=== PATIENT | male | born 1980 | race Caucasian/White ===

== ENCOUNTER → 2021-01-12 00:07 | Outpatient (CLI) | payer OTHER, SELFPAY ==
[2021-01-12 17:14] LABS: SARS-CoV-2 RNA PCR Negative
== END ==
PROVIDERS: Visit Provider Internal Medicine Critical Care Medicine
DX: Z01.812 Encounter for preprocedural laboratory examination (principal); Z20.822 Contact with and (suspected) exposure to COVID-19
CPT/HCPCS: C9803; U0003; U0005

== ENCOUNTER 2021-01-14 09:20 | Outpatient (CLI) | payer OTHER, SELFPAY ==
--- NOTE | 2021-01-31 13:44 | WPDSLEEPSTUD ---
Sleep Study Ordering Provider: Blanca Alfonso MD Interpreting Physician: Blanca Alfonso MD Sleep Study Type: Polysomnogram Height: 1.85 m Weight: 123.377 kg Body Mass Index: 35.9 Neck Circumference (inches): 17 Pindall: 14 Reason for Sleep Study Hypersomnolence Sleep History Bryon Allison is a 40 year old man with nasal allergies, congestion, snoring and witnessed apneas. over the years he has had progressive problems with his sleep and he feels tired in the day, no matter how much sleep he gets. He has had problems losing weight no matter what diet or exercise he uses. His tells him that he shakes at night in . He occasionally snores loudly enough that she complains about it. He occasionally awakens at night with heartburn, belching or coughing. He occasionally awakens from sleep feeling short of breath. He constantly has trouble sleeping with a cold. He occasionally wakes up gasping for breath at night and occasionally has breathing problems at night observed by his . He occasionally notices his heart pounding or beating irregularly at night. He constantly sweats excessively night. He frequently falls asleep during the day. He rarely falls asleep involuntarily. He never falls asleep while driving. He rarely falls asleep while exerting physical effort. He frequently has loss of muscle tone with strong emotion and frequently has daytime difficulties due to his excessive sleepiness. 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 he occasionally feels paralyzed on waking or falling asleep. He rarely has vivid dreamlike scenes upon awakening or falling asleep. He never feels afraid to go to sleep. He rarely has nightmares and rarely remembers his dreams. He rarely has racing thoughts. He rarely feels sad, depressed or anxious. He frequently has muscular tension. He frequently notices parts of his body jerking. He frequently kicks at night. He frequently has crawling and aching feelings in his legs. He occasionally has leg pain at night. He rarely has morning jaw pain and rarely grinds his teeth during sleep. He frequently is bothered by pain during the day. He occasionally is awakened by pain at night. He frequently wakes up feeling stiff in the morning with sore achy muscles and pain in the neck and spine. He has fatigue, palpitations, memory problems and concentration difficulties. He takes antacids regularly. He sleeps on his sides at home, not his back. Normal bedtime is 10-11 pm, taking 15-45 minutes to fall asleep, waking 5-6 times at night. When he wakes at night, he tries to reposition and return to sleep. Sometimes this takes a few minutes, sometimes longer. He wakes the morning at 6:45 a.m.. On weekends, he still goes to bed between 10-11 p.m. but wakes at 8:00 a.m.. He estimates getting 6-8 hours of sleep at night. He takes naps in the afternoon or evening. A short nap is not refreshing. He is usually drowsy in the morning for 3 hours or longer. Habits: Quit tobacco 15 years ago. Caffeine 2-3 per day. No alcohol or recreational drugs. [facility] Past Medical History Medical History Adjustment disorder with depressed mood Astigmatism Backache Cervicalgia Difficulty breathing Elevated blood-pressure reading, without diagnosis of hypertension Encounter for other administrative examinations Error, refractive, myopia Essential (primary) hypertension Facet syndrome, lumbar Hyperlipidemia Lesion of ulnar nerve, left upper limb Lipomatosis Low back pain Myopia, bilateral Nonallopathic lesion of lumbar region Obesity Other intervertebral disc degeneration, lumbosacral region Other muscle spasm Other spondylosis, cervical region Pain in left hip Paresthesia Plantar fasciitis Regular astigmatism, bilateral Sacroiliitis Segmental and somatic dysfunction of cervical region Segmental and somatic dysfunction of lumbar region Segmental and somatic d
[2021-01-31 14:06] VITALS: BMI 35.9
== END 2021-01-14 09:21 | disposition home or self-care (01) ==
LOC: ANHCSM 09:21
PROVIDERS: Visit Provider Internal Medicine Critical Care Medicine
DX: G47.10 Hypersomnia, unspecified (principal); G47.33 Obstructive sleep apnea (adult) (pediatric)
CPT/HCPCS: 95810

== ENCOUNTER 2021-09-26 14:29 | Emergency (ER) | payer OTHER, SELFPAY ==
--- NOTE | 2021-09-26 14:49 | ED.EYEPROB ---
HPI - Eye Problem General Chief complaint: Eye Problems Stated complaint: Rt Eye Time Seen by Provider: 09/26/21 14:49 Source: patient and RN notes reviewed History of Present Illness HPI Narrative: Patient is a 41-year-old male who presents the urgent care with complaints of swelling to the right lower eyelid. Patient states that he noticed some pain and discomfort to the eyelid approximately 1 week ago and yesterday had increased swelling and pain. Patient states that he has a slight obstruction vision but otherwise denies of any vision changes. Patient denies any fevers. Patient has not done anything [id number] for his symptoms. Denies of any known injury or trauma to the eye. No other acute complaints. No acute distress noted. Patient aware of the plan of care. Some parts of this dictation were generated by voice recognition software and may contain typographical and/or grammatical inaccuracies. Related Data Home Medications Medication Instructions Recorded Confirmed cetirizine 10 mg tablet 10 mg PO DAILY 09/13/20 09/26/21 pantoprazole 40 mg tablet,delayed 40 mg PO QAM 09/13/20 09/26/21 release testosterone cypionate 200 mg/mL 200 mg IM ONCE 09/13/20 09/26/21 intramuscular oil Allergies Allergy/AdvReac Type Severity Reaction Status Date / Time No Known Allergies Allergy Verified 09/26/21 14:49 Review of Systems Review of Systems: CONSTITUTIONAL: Denies fever, chills, or sweats. EYES: Reports of redness, swelling to the right lower eyelid ENT: Denies rhinorrhea, congestion, sore throat, or otalgia. CARDIOVASCULAR: Denies chest pain, palpitations, or edema. RESPIRATORY: Denies cough or dyspnea. GASTROINTESTINAL: Denies abdominal pain, nausea, vomiting, or diarrhea. GENITOURINARY: Denies dysuria or hematuria. SKIN: Denies rash or itching. MUSCULOSKELETAL: Denies back pain, joint pain, or myalgia. NEUROLOGIC: Denies headache, numbness, or weakness. All other systems reviewed are negative, except as documented in HPI. [facility] Past Medical History Medical History Adjustment disorder with depressed mood Astigmatism Backache Cervicalgia Difficulty breathing Elevated blood-pressure reading, without diagnosis of hypertension Encounter for other administrative examinations Error, refractive, myopia Essential (primary) hypertension Facet syndrome, lumbar Hyperlipidemia Lesion of ulnar nerve, left upper limb Lipomatosis Low back pain Myopia, bilateral Nonallopathic lesion of lumbar region Obesity Other intervertebral disc degeneration, lumbosacral region Other muscle spasm Other spondylosis, cervical region Pain in left hip Paresthesia Plantar fasciitis Regular astigmatism, bilateral Sacroiliitis Segmental and somatic dysfunction of cervical region Segmental and somatic dysfunction of lumbar region Segmental and somatic dysfunction of thoracic region Sleep disorder Spasm of muscle, back Tendonitis of shoulder, left Surgical History Surgical History History of back surgery History of vasectomy Social History Social History Smoking status: Former smoker Comments At the time of my signature, I reviewed and agree with the nursing past medical, surgical, social, and family history. There is no relevant family history pertinent to the patient complaint. Exam Narrative: GENERAL: This is a well-nourished, well-developed patient, in no apparent distress. HEAD: normocephalic, atraumatic. EYES: PERRL. Sclera clear/white. Vision is grossly intact. Erythemic, tender, moderate sized right lower eyelid hordeolum to the inner canthus without drainage EARS: External ears normal, NOSE: External nose normal with no obvious nasal discharge, nares without redness, no rhinorrhea. THROAT: Mucous membranes moist NECK: Neck supple CARDIOVASCULAR: Reg
[2021-09-26 14:51] VITALS: BP 142/89; PULSE 78; RESP 18; TEMP 36.6; O2SAT 98
== END 2021-09-26 15:01 | disposition home or self-care (01) ==
PROVIDERS: Emergency Provider Nurse Practitioner Family
DX: H00.012 Hordeolum externum right lower eyelid (principal); Z98.52 Vasectomy status; I10 Essential (primary) hypertension; E78.5 Hyperlipidemia, unspecified; M47.892 Other spondylosis, cervical region
CPT/HCPCS: 99213; G0463

== ENCOUNTER 2024-04-03 09:48 | Outpatient (CLI) | payer OTHER, SELFPAY ==
--- NOTE | 2024-04-03 | ECHO_ITS ---
Patient Info Name: Bryon Allison Age: 43 years : 1980 Gender: Male Ht: 73 in Wt: 285 lbs BSA: 2.63 m2 HR: 76 bpm BP: 139 / 86 mmHg Technical Quality: Fair Exam Date: 04/03/2024 10:09 AM Exam Location: Echo Lab Patient Status: Outpatient Admit Date: 04/03/2024 Staff Ordering Physician: Eloise Jordan PA-C Artificial Insemination Technician: Rufina Ramirez RDCS Attending Provider: Eloise Jordan PA-C Exam Type: CA echo doppler color flow Study Info Indications R53.83 - Other fatigue R06.09 - Other forms of dyspnea Complete two-dimensional, color flow and Doppler transthoracic echocardiogram is performed. Summary 1. Complete two-dimensional, color flow and Doppler transthoracic echocardiogram is performed. 2. Left ventricular chamber dimension is normal. 3. Left ventricular systolic function is normal, estimated at 65-70%. 4. The left ventricular diastolic function is normal. 5. E/e' 6 is not elevated. 6. There is mild mitral valve regurgitation. 7. There is mild tricuspid valve regurgitation. 8. No pulmonary hypertension, estimated pulmonary arterial systolic pressure is 32 mmHg. 9. There is trace pulmonic regurgitation. Left Ventricle E/e' 6 is not elevated. Left ventricular chamber dimension is normal. Left ventricular systolic function is normal, estimated at 65-70%. The left ventricular diastolic function is normal. Right Ventricle Right ventricular systolic function is normal and with normal TAPSE 2.7 cm. Right ventricular chamber dimension is normal. Left Atria Left atrial chamber dimension is normal. Right Atria Right atrial chamber dimension is normal. Aortic Valve The aortic valve is trileaflet. There is no aortic valve stenosis. There is no aortic valve regurgitation. Pulmonic Valve There is trace pulmonic regurgitation. Mitral Valve There is no mitral valve stenosis. There is mild mitral valve regurgitation. Tricuspid Valve There is mild tricuspid valve regurgitation. No pulmonary hypertension, estimated pulmonary arterial systolic pressure is 32 mmHg. Pericardium/Pleural There is no pericardial effusion. Inferior Vena Cava Normal inferior vena cava with >50% collapse upon inspiration consistent with normal right atrial pressure, 5 mmHg. Aorta The aortic root size at the sinus of Valsalva is normal. Left Ventricular Outflow Tract Name Value Normal LVOT 2D LVOT Diameter 2.2 cm LVOT Doppler LVOT Peak Gradient 6 mmHg LVOT Mean Gradient 3 mmHg LVOT VTI 24 cm LVOT VTI/AV VTI Ratio 1.0 LVOT Stroke Volume 88 ml LVOT CO 5.6 l/min LVOT CI 2.1 l/min/m2 Pulmonic Valve Name Value Normal RVOT Doppler RVOT Peak Gradient 3 mmHg PV Doppler
== END 2024-04-03 09:49 | disposition home or self-care (01) ==
LOC: ANHCARD 09:49
PROVIDERS: Visit Provider Physician Assistant
DX: R06.00 Dyspnea, unspecified (principal); I08.1 Rheumatic disorders of both mitral and tricuspid valves
CPT/HCPCS: 93306